=== PATIENT | male | born 2000 | race Caucasian/White ===

== ENCOUNTER 2020-09-20 16:07 | Emergency (ER) | payer SELFPAY ==
--- NOTE | 2020-09-20 16:30 | EDM.PDOC ---
ED HPI GENERAL MEDICAL PROBLEM - General Chief Complaint: General Stated Complaint: headache, chest pain Time Seen by Provider: 09/20/20 16:26 Source of Information: Reports: Patient History Limitations: Reports: No Limitations - History of Present Illness INITIAL COMMENTS - FREE TEXT/NARRATIVE: Presents with headache, nausea, cough, substernal chest pain, and SOB x 1 week. COVID test was negative today. Sent from clinic for a "neurological workup." Duration: Week(s): (1) Location: Reports: Head, Chest Quality: Reports: Dull Severity: Mild - Related Data Allergies Allergy/AdvReac Type Severity Reaction Status Date / Time Penicillins Allergy Rash Verified 09/20/20 16:21 Home Meds: Home Meds Citalopram Hydrobromide [Celexa] 20 mg PO DAILY 09/20/20 [History] SUMAtriptan succinate [Sumatriptan Succinate] 25 mg PO PRN 09/20/20 [History] Past Medical History Psychiatric History: Reports: Depression ED ROS GENERAL - Review of Systems Review Of Systems: Comprehensive ROS is negative, except as noted in HPI. Neurological: Reports: Other (hand weakness) ED EXAM, GENERAL - Physical Exam Exam: See Below Exam Limited By: No Limitations General Appearance: Alert, WD/WN, No Apparent Distress Eye Exam: Bilateral Eye: EOMI, PERRL Ears: Normal External Exam, Normal TMs Nose: Normal Inspection Throat/Mouth: Normal Inspection, No Airway Compromise Head: Atraumatic, Normocephalic Neck: Supple Respiratory/Chest: No Respiratory Distress, Lungs Clear, Normal Breath Sounds Cardiovascular: Regular Rate, Rhythm, No Gallop, No Murmur GI/Abdominal: No Distention Back Exam: Full Range of Motion Extremities: Normal Range of Motion Neurological: Alert, Oriented, CN II-XII Intact, Normal Cognition, No Motor/Sensory Deficits, Other (GCS=15, NIHSS score=0) Skin Exam: Warm, Dry, Intact #1 Interpretation EKG Date: 09/20/20 Time: 17:28 Rhythm: NSR Rate (Beats/Min): 79 [place]: Normal P-Wave: Present QRS: Normal ST-T: Normal QT: Normal Comparison: NA - No Prior EKG Course - Vital Signs Last Recorded V/S: Last Vital Signs Temp 37.1 C 09/20/20 16:07 Pulse 114 H 09/20/20 16:07 Resp 19 09/20/20 16:07 BP 148/95 H 09/20/20 16:07 Pulse Ox 100 09/20/20 16:07 - Orders/Labs/Meds Orders: Active Orders 24 hr Category Date Time Status EKG Documentation Completion [RC] ASDIRECTED Care 09/20/20 16:25 Active EKG 12 Lead [EK] Stat Ther 09/20/20 16:25 Ordered Labs: Laboratory Tests 09/20/20 09/20/20 09/20/20 Range/Units 16:32 16:32 16:32 WBC 9.9 (3.2-10.1) x10-3/uL RBC 5.15 (3.90-5.90) x10(6)uL Hgb 15.6 (12.9-17.7) g/dL Hct 45.8 (38.3-50.1) % MCV 88.9 (80.8-98.7) fL MCH 30.3 (27.0-33.3) pg MCHC 34.1 (28.7-35.3) g/dL RDW 12.9 (12.4-15.0) % Plt Count 254 (117-477) x10(3)uL MPV 8.4 (6.7-11.0) fL Neut % (Auto) 68.6 (40.3-71.8) % Lymph % (Auto) 22.9 (15.8-45.3) % Howard % (Auto) 7.5 (5.5-15.2) % Eos % (Auto) 0.5 (0.1-6.8) % Baso % (Auto) 0.5 (0.3-3.8) % Neut # (Auto) 6.8 (1.7-6.9) x10-3/uL Lymph # (Auto) 2.3 (0.5-4.5) x10-3/uL Howard # (Auto) 0.7 (0.0-1.2) x10-3/uL Eos # (Auto) 0.0 (0.0-0.6) x10-3/uL Baso # (Auto) 0.0 (0.0-0.3) x10-3/uL PT 10.9 (9.0-11.1) sec INR 1.01 (1.00-1.24) APTT 27.9 (24.4-33.2) SECONDS D-Dimer, Quantitative < 0.19 (0.0-0.59) mg/LFEU Sodium 138 (135-145) mmol/L Potassium 3.5 (3.5-5.3) mmol/L Chloride 100 (100-110) mmol/L Carbon Dioxide 28 (21-32) mmol/L BUN 10 (7-18) mg/dL Creatinine 0.9 (0.70-1.30) mg/dL Est Cr Clr Drug Dosing TNP Estimated GFR (MDRD) > 60 (>60) BUN/Creatinine Ratio 11.1 (9-20) Glucose 119 H (80-116) mg/dL Calcium 8.8 (8.6-10.2) mg/dL Total Bilirubin 0.6 (0.1-1.3) mg/dL AST 15 (5-25) IU/L ALT 28 (12-36) U/L Alkaline Phosphatase 80 (56-112) IU/L Troponin I (4.0-60.3) pg/mL Total Protein 8.3 H (6.0-8.0) g/dL Albumin 4.5 (3.5-5.2) g/dL Globulin 3.8 g/dL Albumin/Globulin Ratio 1.2 /16/ Range/Units 16:32 WBC (3.2-10.1) x10-3/uL RBC (3.90-5.90) x10(6)uL Hgb (12.9-17.7) g/dL Hct (38.3-50.1) % MCV (80.8-98.7) fL MCH (27.0-33.3) pg MCHC (28.7-35.3) g/dL RDW (12.4-15.0) % Plt Count (117-477) x10(3)uL MPV (6.7-11.0) fL Neut % (Auto) (40.3-71.8) % Lymph % (Auto) (15.8-45.3) % Howard % (Auto) (5.5-15.2) % Eos % (Auto) (0.1-6.8) % Baso % (Auto) (0.3-3.8) % Neut # (Auto) (1.7-6.9) x10-3/uL Lymph # (Auto) (0.5-4.5) x10-3/uL Howard # (Auto) (0.0-1.2) x10-3/uL Eos # (Auto) (0.0-0.6) x10-3/uL Baso # (Auto) (0.0-0.3) x10-3/uL PT (9.0-11.1) sec INR (1.00-1.24) APTT (24.4-33.2) SECONDS D-Dimer, Quantitative (0.0-0.59) mg/LFEU Sodium (135-145) mmol/L Potassium (3.5-5.3) mmol/L Chloride (100-110) mmol/L Carbon Dioxide (21-32) mmol/L BUN (7-18) mg/dL Creatinine (0.70-1.30) mg/dL Est Cr Clr Drug Dosing Estimated GFR (MDRD) (>60) BUN/Creatinine Ratio (9-20) Glucose (80-116) mg/dL Calcium (8.6-10.2) mg/dL Total Bilirubin (0.1-1.3) mg/dL AST (5-25) IU/L ALT (12-36) U/L Alkaline Phosphatase (56-112) IU/L Troponin I < 4.0 L (4.0-60.3) pg/mL Total Protein (6.0-8.0) g/dL Albumin (3.5-5.2) g/dL Globulin g/dL Albumin/Globulin Ratio - Radiology Interpretation Free Text/Narrative:: CXR: No active disease. (Dr. Handy) CT Head s/ contrast: No acute intracranial abnormalities. (Dr. Handy) Departure - Departure Time of Disposition: 17:52 Disposition: Home, Self-Care 01 Condition: Good Clinical Impression: Cephalgia Qualifiers: Headache type: unspecified Headache chronicity pattern: acute headache Intractability: not intractable Qualified Code(s): R51.9 - Headache, unspecified URI (upper respiratory infection) Qualifiers: URI type: unspecified viral URI Qualified Code(s): J06.9 - Acute upper respiratory infection, unspecified - Discharge Information *PRESCRIPTION DRUG MONITORING PROGRAM REVIEWED*: No *COPY OF PRESCRIPTION DRUG MONITORING REPORT IN PATIENT JESSICA: Not Applicable Instructions: Viral Respiratory Infection, Buxm-Au-[id number], General Headache Without Cause Referrals: Reed Bradley DO [Physician] - 2 Days Forms: ED Department Discharge Additional Instructions: Take Tylenol or Ibuprofen as needed. Rest, drink plenty of fluids. Follow up with your primary physician in 2-3 days. Return to the ER if you think you are having a medical emergency. Sepsis Event Note (ED) - Focused Exam Vital Signs: Vital Signs Temp Pulse Resp BP Pulse Ox 09/20/20 16:07 37.1 C 114 H 19 148/95 H 100 - My Orders Last 24 Hours: My Active Orders 09/20/20 16:25 EKG Documentation Completion [RC] ASDIRECTED EKG 12 Lead [EK] Stat - Assessment/Plan Last 24 Hours: My Active Orders 09/20/20 16:25 EKG Documentation Completion [RC] ASDIRECTED EKG 12 Lead [EK] Stat
--- NOTE | 2020-09-20 17:09 | CR ---
INDICATION: Chest pain. CHEST TWO VIEWS: PA and lateral views of the chest were obtained 09/20/20 - no comparisons. The heart, mediastinum and bony thorax were unremarkable. An active infiltrate or effusion was not identified. IMPRESSION: No active disease. MTDD
--- NOTE | 2020-09-20 17:14 | CT ---
INDICATION: Headache going left to right, frontal and occipital x1 week. No history of trauma. CT HEAD WITHOUT CONTRAST: Spiral 3.75 mm axial sections were obtained through the brain without contrast with axial, sagittal and coronal reconstructions 09/20/20 - no comparisons. Total exam DLP was 1270.76 mGy-cm. A small retention cyst is noted in the right maxillary antrum. Paranasal sinuses and mastoid air cells were otherwise well aerated. No definite cranial abnormality was seen. No shift of midline structures, significant ventricular abnormalities or abnormal areas of density were identified. The orbits appear to be intact. IMPRESSION: No acute intracranial abnormality - normal CT brain without contrast. Report was called to Dr. Montaño at 1657 hours. [facility]
== END 2020-09-20 18:15 | disposition home or self-care (01) ==
LOC: FB.ED 16:07
DX: J06.9 Acute upper respiratory infection, unspecified (principal); R51.9 Headache, unspecified; Z88.0 Allergy status to penicillin; Z79.899 Other long term (current) drug therapy
CPT/HCPCS: 36415; 70450; 71046; 80053; 84484; 85025; 85379; 85610; 85730; 93005; 93010; 99283; 99285-25

== ENCOUNTER 2021-12-24 22:38 | Emergency (ER) | payer SELFPAY ==
[2021-12-24] MEDS ORDERED: Ondansetron 4 MG Tab.DIS PO ONE (22:45)
[2021-12-24] MEDS ORDERED: Magnesium Citrate Solution 296 ML Bottle PO ONE (23:10)
[2021-12-24] MEDS ORDERED: Glycerin Adult 2 GM Supp RECTAL ONE (23:11)
[2021-12-24] MEDS ORDERED: Ondansetron 4 MG Tab.DIS ONE (23:49)
[2021-12-25] MEDS ORDERED: Propranolol 10 MG Tab PO STA (00:06)
== END 2021-12-25 00:58 | disposition home or self-care (01) ==
LOC: FB.ED 22:38
DX: K59.01 Slow transit constipation (principal); I10 Essential (primary) hypertension; Z88.0 Allergy status to penicillin
CPT/HCPCS: 81001; 99282; 99284; A9270-GY